=== PATIENT | male | born 1945 | race Caucasian/White ===

== ENCOUNTER → 2023-02-14 11:06 | Outpatient (REF) | payer MEDICARE, SELFPAY | LOC: RAD 11:06 | PROVIDERS: ATTENDING PHYSICIAN Family Medicine | DX: Z12.2 Encounter for screening for malignant neoplasm of respiratory organs (principal); R91.1 Solitary pulmonary nodule; R07.89 Other chest pain; Z87.891 Personal history of nicotine dependence | CPT/HCPCS: 71271 ==

== ENCOUNTER → 2023-07-31 08:09 | Outpatient (REF) | payer MEDICARE, SELFPAY | LOC: MRI 08:09 | PROVIDERS: ATTENDING PHYSICIAN Family Medicine | DX: I63.89 Other cerebral infarction (principal) | CPT/HCPCS: 70553; A9575 ==

== ENCOUNTER → 2023-09-13 13:51 | Outpatient (REF) | payer OTHER, SELFPAY | LOC: DHCBC MAIN 13:51 | PROVIDERS: ATTENDING PHYSICIAN Internal Medicine Cardiovascular Disease; FAMILY PHYSICIAN Family Medicine | DX: E78.5 Hyperlipidemia, unspecified (principal); R94.31 Abnormal electrocardiogram [ECG] [EKG]; I63.9 Cerebral infarction, unspecified | CPT/HCPCS: 93306 ==

== ENCOUNTER → 2023-10-03 06:49 | Outpatient (REF) | payer OTHER, SELFPAY | LOC: MRI 3T 06:49 | PROVIDERS: ATTENDING PHYSICIAN Specialist; FAMILY PHYSICIAN Family Medicine | DX: I63.331 Cerebral infarction due to thrombosis of right posterior cerebral artery (principal); I63.332 Cerebral infarction due to thrombosis of left posterior cerebral artery | CPT/HCPCS: 70544; 70547 ==

== ENCOUNTER → 2023-10-10 06:34 | Outpatient (REF) | payer OTHER, SELFPAY | LOC: MRI 06:34 | PROVIDERS: ATTENDING PHYSICIAN Specialist; FAMILY PHYSICIAN Family Medicine | DX: M54.12 Radiculopathy, cervical region (principal) | CPT/HCPCS: 72141 ==

== ENCOUNTER 2023-11-22 12:48 | Day surgery (SDC) | payer OTHER, SELFPAY ==
--- NOTE | 2023-11-22 16:47 | ITS.CL.IMPLP ---
Lead Pl Sql Developer - Implant Loop
Implant Loop
Procedure Report:
Date of Procedure: November 22, 2023.
Procedure: Insertable Loop Recorder Implant.
Indication: Embolic stroke of unknown source.
Performing physician: Praveen Gardner MD, [facility].
Implant: [employer]onic; Reveal LINQII; Model# [id number]; Serial# [id number].
Technique: The patient was prepped and draped in the usual fashion. A time-out was performed. No intravenous sedation was administered. Local anesthetic was applied to the left pre-pectoral subcutaneous tissue. Using the insertion kit an incision
was made left of the midline in the fourth intercostal space and the device was implanted subcutaneously and directed towards the nipple. Hemostasis was excellent. The skin was closed with steri-strips. The estimated blood loss was less than 1 ml.
There were no complications. No fluoroscopy. R waves measured 0.47 mV and P waves were visible.
Final Programming: Detections: Afib, tachy at 160 bpm, ran at 30 bpm, pause at 3 sec.
Conclusion: Uncomplicated insertable loop implant.
Recommendation: Routine post-insertable loop care. The device is MRI conditional without a waiting period and up to 3 [place].
cc: Jenaro Macedo MD and Richi Boone DO.
== END 2023-11-22 15:35 | disposition home or self-care (01) ==
LOC: CATH 12:48
PROVIDERS: ATTENDING PHYSICIAN Internal Medicine Cardiovascular Disease; FAMILY PHYSICIAN Family Medicine; OTHER PHYSICIAN Internal Medicine Cardiovascular Disease
DX: Z09 Encounter for follow-up examination after completed treatment for conditions other than malignant neoplasm (principal); Z86.73 Personal history of transient ischemic attack (TIA), and cerebral infarction without residual deficits; I45.10 Unspecified right bundle-branch block; I10 Essential (primary) hypertension; E78.5 Hyperlipidemia, unspecified; E11.9 Type 2 diabetes mellitus without complications; Z79.82 Long term (current) use of aspirin; Z79.84 Long term (current) use of oral hypoglycemic drugs; K21.9 Gastro-esophageal reflux disease without esophagitis
CPT/HCPCS: 33285; C1764

== ENCOUNTER → 2024-06-15 13:30 | Outpatient (REF) | payer OTHER, SELFPAY | LOC: MRI 13:30 | PROVIDERS: ATTENDING PHYSICIAN Specialist; FAMILY PHYSICIAN Family Medicine; REFERRING PHYSICIAN Internal Medicine Cardiovascular Disease | DX: K86.2 Cyst of pancreas (principal) | CPT/HCPCS: 74181 ==

== ENCOUNTER → 2024-10-09 10:33 | Outpatient (REF) | payer OTHER, SELFPAY | LOC: REG 10:33 | PROVIDERS: ATTENDING PHYSICIAN Family Medicine | DX: M79.602 Pain in left arm (principal) | CPT/HCPCS: 73130 ==

== ENCOUNTER → 2024-11-18 10:45 | Outpatient (REF) | payer OTHER, SELFPAY | LOC: RAD 10:45 | PROVIDERS: ATTENDING PHYSICIAN Internal Medicine Cardiovascular Disease; FAMILY PHYSICIAN Family Medicine | DX: I63.9 Cerebral infarction, unspecified (principal); R26.2 Difficulty in walking, not elsewhere classified; R29.6 Repeated falls; R26.89 Other abnormalities of gait and mobility | CPT/HCPCS: 70450 ==

== ENCOUNTER 2025-05-08 01:56 | Emergency (ER) | payer OTHER, SELFPAY ==
[2025-05-08 01:59] VITALS: BP 187/94
[2025-05-08 04:25] VITALS: BP 155/76
--- NOTE | 2025-05-08 04:25 | ED.GENMED ---
History of Present Illness
General
Chief Complaint: Cold/Flu/URI Symptoms
Source: patient and spouse
Exam Limitations: none
Time Seen by Provider: 05/08/25 04:14
Nursing documentation reviewed up to this point in time: agreed with
History of Present Illness
History of Present Illness:
HISTORY OF PRESENT ILLNESS
The patient is an 79-year-old male presenting with symptoms of nasal congestion and difficulty breathing, particularly at night, for the past week. He denies any fever. The patient states, 'I wake up and can�t breathe,' indicating a significant
level of nasal obstruction and congestion. The nasal discharge is described as running clear. Initially, he was assessed by his family doctor via telephone call and started on a course of antibiotics, identified as a Z-Alfonzo (azithromycin), which was
completed yesterday. Despite this course, there has been little improvement, leading to todays visit. A follow-up telephone call to PCP yesterday, he was started on Flonase nasal spray which he used for the first time this evening, thus far no
improvement. The patients symptoms worsen at nighttime and first thing in the morning.
He resides at home with his .
He has history of dementia and notes difficulty getting him out of the house to PCP office thus she was concerned with ongoing symptoms and no [id number] visit which prompted ED visit tonight.
His appetite has been good. He has had no headache, no fever, no dizziness nor lightheadedness. He denies sore throat.
He notes some shortness of breath at nighttime mostly related to significant nasal congestion. He denies dyspnea on exertion. Minimal nonproductive cough. No chest pain or palpitations.
Past History
Past History
ED Past Medical History: CVA, GERD (Hiatal hernia), HTN, NIDDM, Other (Dementia) and Other (Diverticulosis, diverticulitis)
ED Past Surgical History: Urological
Social History
Tobacco: Non-smoker
Alcohol: Occasional
Drug: None
Personal:
Living: with family
Employment: Retired
Family History
Family History: Other (Noncontributory)
Phy Exam
Physical Exam
Physical Exam:
GENERAL: 79-year-old gentleman appears his stated age, bright and alert, pleasant, easily communicative and in no acute distress. Lying Semi-Mo's on stretcher. Moderate nasal stuffy voice is noted but no respiratory distress, no cough
appreciated. Afebrile.
EYE: pupils equal and reactive. anicteric
NECK: Supple, nontender, no meningismus, no significant adenopathy.
ENT: posterior pharynx is without injection nor edema, scant pearly postnasal drip is noted, oral mucosa is moist. TM clear b/l, nares have moderately boggy turbinates with mild clear rhinorrhea.
CARDIAC: Regular rate and rhythm. no murmur.
LUNGS: Clear breath sounds bilaterally, no acute respiratory distress, no wheezes/rales/rhonchi
ABDOMEN: Soft, nondistended, without focal tenderness
NEUROLOGICAL: Alert and oriented x3, no focal neuro deficits.
SKIN: Warm and dry, normal color, skin intact. No rash.
MUSCULOSKELETAL: No C/C/E. peripheral pulses are full and equal b/l. No palpable tenderness.
PSYCH: Normal and appropriate interaction.
Course
Orders/Labs/Results
Orders:
Orders
05/08/25 03:57
COVID-19 Antigen Urgent
Source: Nasal Swab
Influenza A+B Rapid Molecular Urgent
ALECIA Source: Nasal Swab
Specimen Description:
05/08/25 04:24
Oxymetazoline HCl [Afrin Nasal [place]] See Dose Instructions NASAL NOW STA
05/08/25 04:25
Prednisone [Deltasone] 20 mg PO NOW STA
Vital Signs
Initial and Last Documented VS:
Initial Vital Signs
Temp Pulse Resp BP Pulse Ox
97.5 F 70 24 187/94 98
05/08/25 01:59 05/08/25 01:59 05/08/25 01:59 05/08/25 01:59 05/08/25 01:59
Last Documented Vital Signs
Temp Pulse Resp BP Pulse Ox
97.5 F 70 24 187/94 98
05/08/25 01:59 05/08/25 01:59 05/08/25 01:59 05/08/25 01:59 05/08/25 01:59
MDM/Problems Addressed
Differential Diagnosis Includes:
DIFFERENTIAL DIAGNOSIS
The Differential Diagnosis includes, in no particular order and is not limited to:
1. Viral upper respiratory infection
2. Acute rhinosinusitis
3. Allergic rhinitis
4. Non-allergic rhinitis
5. Nasal polyps
6. Sinusitis
7. Chronic obstructive pulmonary disease exacerbation
8. Congestive heart failure (if cough and difficulty breathing persist)
9. Bronchitis
10. Asthma.
MDM/Problems Addressed:
Acute URI with nasal congestion, clear rhinorrhea
Overall well in appearance. Afebrile.
Moderate nasal congestion is noted on exam but no respiratory distress and lungs are clear to auscultation.
I suspect viral URI. Recently completed a course of Zithromax for coverage of potential bacterial sinusitis, but clinically, appears viral in nature.
Recommend continuing Flonase and will add a short course of Afrin nasal spray for nasal congestion.
Will also add a short course of prednisone.
Recommend supportive measures, elevating head of bed at nighttime, Vicks vapor rub, humidifier or vaporizer at nighttime.
Prompt follow-up with PCP for recheck.
Chronic conditions affecting care:
Diabetes, hypertension, dementia
*Pulse Oximetry
SaO2: 98
Oxygen Mode of Delivery: Room air
Patient hypoxic: no
*Critical Care Note
Total Time (30-74mins, 75-104mins- exclusive of procedures): Not Applicable
ED Attending Note
-
Portions of this chart may have been created with voice recognition software.� Occasional wrong word or��sound alike� substitutions may have occurred due to the inherent limitations of voice recognition software.
Discharge Plan
Departure
Patient Disposition: Home (Routine Discharge)
Date of Disposition: 05/08/25
Time of Disposition: 04:36
Patient with high blood pressure during this ER visit?: No
Condition: Good
Discharge Problem:
Acute rhinitis
Instructions: Cough, runny nose, and colds
Prescriptions:
New
prednisone 20 mg tablet
20 mg PO DAILY Qty: 5 0RF
No Action
tamsulosin 0.4 MG capsule
0.4 mg PO BID
losartan 50 mg Tablet
50 mg PO DAILY Qty: 0
finasteride 5 MG tablet
5 mg PO DAILY
acetaminophen [Tylenol] 325 MG capsule
650 mg PO Q4HPRN PRN (Reason: pain/discomfort/fever)
atorvastatin 40 MG tablet
40 mg PO QPM Qty: 14 0RF
amlodipine 2.5 MG tablet
2.5 mg PO DAILY Qty: 30 0RF
ascorbic acid (vitamin C) [Vitamin C] 500 MG tablet
500 mg PO DAILY 0RF
pantoprazole 40 MG tablet,delayed release (DR/EC)
40 mg PO DAILY Qty: 30 0RF
zinc sulfate 220 MG capsule
220 mg PO DAILY 0RF
cholecalciferol (vitamin D3) 1,000 UNITS tablet
1,000 units PO DAILY 0RF
enoxaparin 40 MG/0.4 ML syringe
40 mg SC QPM Qty: 30 0RF
Referrals:
Richi Boone DO [Family Provider, Family Practice] - Call in 1-3 days for appt
Activity Restrictions/Additional Instructions:
Continue fluticasone 2 sprays each nostril once daily.
Along with this, you can use Afrin nasal spray, 2 sprays each nostril twice daily as needed for congestion. Do not use Afrin nasal spray longer than 3 to 4 days duration.
You have also been placed on a short course of prednisone to take once daily over the next 5 days.
Elevate head of bed at nighttime. Applying Vicks to external nostril area at nighttime as well as a humidifier or vaporizer also can help with nasal congestion.
Interventions
Interventions:
*Risk Screen - Suicide Last Done: 05/08/25 01:59
*General Assessment Last Done: 05/08/25 02:24
*Neglect/Abuse Screening Last Done: 05/08/25 01:59
*ED COVID-19 Vaccine History Last Done: 05/08/25 01:59
*ED Influenza Vaccine History Last Done: 05/08/25 01:59
[facility] Fall Risk Assessment Tool Last Done: 05/08/25 02:24
ED- Pulmonary Assessment Last Done: 05/08/25 02:25
Discharge Date and Time
Print Language: [id number]
[2025-05-08] MEDS: DELTASONE 20 MG PO (04:29)
[2025-05-08] MEDS: AFRIN NASAL SPRAY 30 SPRAYS NASAL (04:30)
[2025-05-08 04:31] LABS: COVID-19 Antigen Negative (Negative)
== END 2025-05-08 04:58 | disposition home or self-care (01) ==
LOC: EMR 01:56
PROVIDERS: EMERGENCY PHYSICIAN Emergency Medicine; FAMILY PHYSICIAN Family Medicine
DX: J00 Acute nasopharyngitis [common cold] (principal); F03.90 Unspecified dementia, unspecified severity, without behavioral disturbance, psychotic disturbance, mood disturbance, and anxiety; E11.9 Type 2 diabetes mellitus without complications; I10 Essential (primary) hypertension; K21.9 Gastro-esophageal reflux disease without esophagitis; K44.9 Diaphragmatic hernia without obstruction or gangrene; Z79.84 Long term (current) use of oral hypoglycemic drugs; Z86.73 Personal history of transient ischemic attack (TIA), and cerebral infarction without residual deficits
CPT/HCPCS: 99283; 87502; 87811